=== PATIENT | male | born 1930 | race Caucasian/White ===

== ENCOUNTER 2019-10-25 10:18 | Emergency (ER) | payer MEDICARE, OTHER ==
[~2019-10-25] VITALS: Ht 172.7 cm; Wt 88.5 kg
[~2019-10-25 10:18] MED LIST: BETAPACE80 MG PO; CELEBREX 200 M200 M1 PO; CENTURY ADULTS1 EACH PO; COUMADIN 5 MG TA5 M1 PO; SIMVASTATIN40 MG PO; VITAMIN D2000 UNI2 PO
[2019-10-25] MEDS ORDERED: ASPIR 8181 M1 PO (10:37)
[2019-10-25] MEDS ORDERED: LASIX 40 MG TAB40 MG PO (10:37)
[2019-10-25] MEDS ORDERED: IMDUR 60 MG TAB60 M1 PO (10:38)
[2019-10-25] MEDS ORDERED: NORVASC 2.5 MG2.5 M1 PO (10:38)
[2019-10-25] MEDS ORDERED: OMEPRAZOLE40 MG PO (10:38)
[2019-10-25] MEDS ORDERED: POTASSIUM20 PO (10:38)
[2019-10-25] MEDS ORDERED: NABUMETONE 750750 M1 PO (12:06)
[2019-10-25] MEDS ORDERED: NORCO 5-325 TA1 EAC1 PO (12:06)
[2019-10-25 12:51] VITALS: BP 126/74
== END 2019-10-25 12:53 | disposition home or self-care (01) ==
LOC: M.ERS 10:18
DX: S32.038A Other fracture of third lumbar vertebra, initial encounter for closed fracture (principal); E78.00 Pure hypercholesterolemia, unspecified; Z96.653 Presence of artificial knee joint, bilateral; Z86.73 Personal history of transient ischemic attack (TIA), and cerebral infarction without residual deficits; Z88.8 Allergy status to other drugs, medicaments and biological substances; V89.9XXA Person injured in unspecified vehicle accident, initial encounter; Y93.89 Activity, other specified; Y92.89 Other specified places as the place of occurrence of the external cause; Y99.8 Other external cause status

== ENCOUNTER 2019-10-30 00:34 | Emergency (ER) | payer MEDICARE, OTHER ==
[~2019-10-30] VITALS: Ht 172.7 cm; Wt 88.0 kg
[~2019-10-30 00:34] MED LIST changes: +ASPIR 8181 M1 PO; +IMDUR 60 MG TAB60 M1 PO; +LASIX 40 MG TAB40 MG PO; +NABUMETONE 750750 M1 PO; +NORCO 5-325 TA1 EAC1 PO; +NORVASC 2.5 MG2.5 M1 PO; +OMEPRAZOLE40 MG PO; +POTASSIUM20 PO
[2019-10-30] MEDS ORDERED: PERCOCET 5-3251 EACH PO ×2 (03:54→04:32)
[2019-10-30 04:06] VITALS: BP 150/81
== END 2019-10-30 04:07 | disposition home or self-care (01) ==
LOC: M.ERS 00:34
DX: M25.551 Pain in right hip (principal); E78.00 Pure hypercholesterolemia, unspecified; Z86.73 Personal history of transient ischemic attack (TIA), and cerebral infarction without residual deficits; Z96.653 Presence of artificial knee joint, bilateral; Z88.8 Allergy status to other drugs, medicaments and biological substances